=== PATIENT | male | born 1940 | race Caucasian/White ===

== ENCOUNTER 2024-03-19 11:25 | Outpatient (RCR) | payer MEDICARE, OTHER, SELFPAY | END 2024-03-19 23:59 | disposition home or self-care (01) | LOC: RPT 11:25 | PROVIDERS: ATTENDING PHYSICIAN Student in an Organized Health Care Education/Training Program; FAMILY PHYSICIAN Family Medicine | DX: M54.50 Low back pain, unspecified (principal); M17.0 Bilateral primary osteoarthritis of knee; Z73.6 Limitation of activities due to disability; M25.561 Pain in right knee; M25.562 Pain in left knee | CPT/HCPCS: 97110; 97162 ==

== ENCOUNTER 2024-04-25 12:06 | Outpatient (RCR) | payer MEDICARE, OTHER, SELFPAY | END 2024-04-25 23:59 | disposition home or self-care (01) | LOC: RPT 12:06 | PROVIDERS: ATTENDING PHYSICIAN Student in an Organized Health Care Education/Training Program; FAMILY PHYSICIAN Family Medicine | DX: M54.50 Low back pain, unspecified (principal); M17.0 Bilateral primary osteoarthritis of knee; Z73.6 Limitation of activities due to disability | CPT/HCPCS: 97110; 97140 ==

== ENCOUNTER 2024-05-21 12:12 | Outpatient (RCR) | payer MEDICARE, OTHER, SELFPAY | END 2024-05-22 06:03 | disposition home or self-care (01) | LOC: RPT 12:12 | PROVIDERS: ATTENDING PHYSICIAN Student in an Organized Health Care Education/Training Program; FAMILY PHYSICIAN Family Medicine | DX: M54.50 Low back pain, unspecified (principal); M17.0 Bilateral primary osteoarthritis of knee; Z73.6 Limitation of activities due to disability | CPT/HCPCS: 97110; 97530 ==

== ENCOUNTER → 2024-12-13 13:02 | Outpatient (REF) | payer MEDICARE, OTHER, SELFPAY | LOC: RAD 13:02 | PROVIDERS: ATTENDING PHYSICIAN Family Medicine | DX: R06.00 Dyspnea, unspecified (principal) | CPT/HCPCS: 71046 ==

== ENCOUNTER → 2025-07-08 11:24 | Outpatient (REF) | payer MEDICARE, OTHER, SELFPAY | LOC: MRI 3T 11:24 | PROVIDERS: ATTENDING PHYSICIAN Specialist; FAMILY PHYSICIAN Family Medicine | DX: M48.062 Spinal stenosis, lumbar region with neurogenic claudication (principal) | CPT/HCPCS: 72148 ==

== ENCOUNTER → 2025-07-24 16:47 | Outpatient (REF) | payer MEDICARE, OTHER, SELFPAY | LOC: RAD 16:47 | PROVIDERS: ATTENDING PHYSICIAN Family Medicine | DX: R05.9 Cough, unspecified (principal) | CPT/HCPCS: 71046 ==